=== PATIENT | male | born 2000 | race Caucasian/White ===

== ENCOUNTER 2021-01-01 10:27 | Emergency (ER) | payer BC, SELFPAY ==
[2021-01-01 10:50] VITALS: BP 114/72; PULSE 67; RESP 17; TEMP 36.9; O2SAT 100; BMI 20.9
[2021-01-01] MEDS: dexamethasone 4 mg Tablet 10 MG PO (11:26)
[2021-01-01] MEDS: ondansetron 4 MG Tablet PO (11:27)
--- NOTE | 2021-01-01 11:31 | W.ED.GENADLT ---
HPI - General Adult General: Chief complaint: General Medical Stated complaint: COVID SYMPTOMS Time Seen by Provider: 01/01/21 11:03 History of Present Illness: HPI narrative: Covid-like symptoms. Patient also hit his head on Saturday. Striking on countered had no loss of consciousness no nausea or vomiting. Patient complains of body aches last week or so not any specific day that started his head little bit of sore throat congestion nausea. Cough possibly fever has had positive Covid exposure Onset (ago): day(s) Severity: mild Quality: aching Associated symptoms: Reports cough, fevers/chills, headache(s) (This was previous to hitting his head), nausea and other (Diarrhea); Deny chest pain, dyspnea or rash Review of Systems Const: Reports: chills and body aches; Denies: fever(s) Eyes: Denies: change in vision or blurry vision ENMT: Denies: throat pain or nasal congestion Card: Denies: chest pain or dyspnea on exertion Resp: Denies: dyspnea, productive cough or non-productive cough GI: Reports: nausea and diarrhea : Denies: difficulty urinating Musc: Denies: extremity pain Skin/Breast: Denies: rash Neuro: Reports: headache(s) (This was previous to hitting his head) Psych: Denies: anxiety or depression Lito/Lymph: Denies: easy bruising Physical Exam Const: COMMON NORMALS: no acute distress, average body habitus, patient oriented x3 and alert HENMT: COMMON NORMALS: normocephalic HEAD & SCALP: normal to inspection and normocephalic FACE & SINUS: normal facial exam Eye: COMMON NORMALS: Equal, round and reactive pupils present and conjunctivae normal GENERAL EYE: appearance normal, both eyes and all related structures CONJUNCTIVA: Yes conjunctivae normal PUPIL: Yes Equal, round and reactive pupils present Neck/C-Spine: COMMON NORMALS: no JVD Chest: COMMONS NORMALS: normal inspection of the chest Resp: COMMON NORMALS: normal respiratory effort and clear to auscultation bilaterally AUSCULTATION: clear to auscultation bilaterally Cardio: COMMON NORMALS: no JVD, regular rate and regular rhythm RATE: regular rate RHYTHM: regular rhythm GI: COMMON NORMALS: Normal to inspection, nondistended, normoactive bowel sounds present Extremity: COMMON NORMALS: normal to inspection and full ROM Neuro: COMMON NORMALS: patient oriented x3, CN's II-XII intact bilaterally, moves all extremities, no focal motor deficits and no sensory deficits noted SENSORIUM/ORIENTATION: Yes alert Course Vital Signs: Vital signs: Vital Signs Temperature 98.4 F 01/01/21 10:50 Pulse Rate 67 01/01/21 10:50 Respiratory Rate 17 01/01/21 10:50 Blood Pressure 114/72 01/01/21 10:50 Pulse Oximetry 100 01/01/21 10:50 MDM - General Adult MDM Narrative: Medical decision making narrative: Patient had emesis right after ministration of Zofran orally. Change to IM shot. Patient put on 24-hour clear liquid diet. Follow-up here if worsening or follow-up primary care provider. Discharge Plan Discharge Patient Disposition: Home Clinical Impression: Close exposure to 2019-nCoV Condition: Stable Prescriptions: New Zofran 4 mg tablet 4 mg PO Q8H 3 Days Qty: 9 RF: 0 dexamethasone 6 mg tablet 6 mg PO DAILY Qty: 7 RF: 0 No Action Vitamin C 250 mg Tablet 250 mg PO DAILY RF: 0 Men's One Daily 400-20-300 mcg Tablet 1 tab PO DAILY RF: 0 Discharge Orders: Discharge ED (Routine); Ordered 01/01/21 Ordered By: Ceasar Sherwood Referrals: Jaime Corbin MD [Family Provider] - Discharge Diet: Advance as tolerated Discharge Activity: Increase activity as tolerated Patient Instructions: Viral Syndrome (ED) Activity Restrictions/Additional Instructions: Follow-up with medical provider as directed. Take medications as prescribed. Return to the ER or your medical provider if condition worsens. Please read and understand discharge instructions. If any questions ask please. Self quarantine. Call back in 48 to 72 hours to get Covid test results. 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
[2021-01-01] MEDS: ondansetron 2 mg/ML SDV 2 mL 4 MG IM (11:46)
[2021-01-01 12:04] VITALS: BP 126/69; PULSE 74; RESP 18; O2SAT 98
[2021-01-02 14:00] LABS: Coronavirus Test Green County Detected
== END 2021-01-01 12:04 | disposition home or self-care (01) ==
PROVIDERS: Emergency Provider Nurse Practitioner Family; Family Provider Urology
DX: Z20.822 Contact with and (suspected) exposure to COVID-19 (principal)
CPT/HCPCS: 87635; 96372; 99283; J2405; J8540; Q0162

== ENCOUNTER 2025-03-16 11:46 | Emergency (ER) | payer OTHER, SELFPAY ==
[2025-03-16 11:52] VITALS: BP 131/61; PULSE 68; TEMP 36.9; O2SAT 99; BMI 21.4
--- OUTSIDE RECORDS SUMMARY | 2025-03-16 11:55 | XMS_ITS | Clinical Summary ---
[facility] Organization 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
--- OUTSIDE RECORDS SUMMARY | 2025-03-16 11:55 | XMS_ITS | Encounter Summary ---
Author Organization [facility] Address [address] [place] [address] Care Team Providers Care Tongue Lining Stitcher Name Role Phone Unavailable Primary Care Provider Unavailabl e Encounter Details Date Type Department Care Team (Latest Contact Info) Description 12/14/2004 Outpatient Historical [facility], Nose and Throat 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
[2025-03-16 12:15] LABS: Add Urine Microscopic? NO
[2025-03-16 12:19] LABS: Glucose Urine UA Negative (Normal); Nitrate Urine Negative (Negative); Specific Gravity, Urine 1.009 (1.005-1.030)
[2025-03-16 12:36] LABS: Charge for UA Resulting for Rev
[2025-03-16 12:37] LABS: Hematocrit 42.2 % (37-53); Hemoglobin 14.10 g/dL (11.27-16.99); Mean Corpuscular HGB Conc 33.4 g/dL (30-55); Mean Corpuscular Hemoglobin 30.5 pg (27-33); Mean Corpuscular Volume 91.1 fl (82-101); Nucleated Red Blood Cells % 0 %; Platelet Count 220 10^3/cmm (157-399); Red Blood Count 4.63 10^6/uL (3.85-5.65); White Blood Count 4.86 10^3/uL (3.29-11.43)
[2025-03-16 12:58] LABS: Alanine Aminotransferase 20 U/L (0-41); Albumin Level 4.7 g/dL (3.5-5.2); Alkaline Phosphatase 88 U/L (40-130); Anion Gap 18.5 (5-19); Aspartate Amino Transferase 21 U/L (0-40); Blood Urea Nitrogen 11 mg/dL (6-20); Calcium 9.6 mg/dL (8.5-10.5); Carbon Dioxide 24 mmol/L (22-29); Chloride 102 mmol/L (98-107); Creatinine Clr Calc Pharmacy 121.1994; Globulin 2.7 g/dL (1.3-4.6); Glucose 106 mg/dL (65-115); Lipase 20 U/L (13-60); Osmolality Calculated 290 mOsm/kg (285-295); Potassium 4.5 mmol/L (3.5-5.1); Sodium 140 mmol/L (136-145); Total Protein 7.4 g/dL (6.6-8.7)
--- NOTE | 2025-03-16 13:08 | W.ED.ABDPA2 ---
HPI - Abdominal Pain General: Chief Complaint: Abdominal Pain Stated Complaint: abd pain, nausea Time Seen by Provider: 03/16/25 13:08 Source: patient Mode of arrival: ambulatory Limitations: no limitations History of Present Illness: Patient is a 24-year-old male who presents to ED today with complaint of right upper quadrant abdominal pain that has been present over the past 3 days. He feels like pain has been intermittent. He cannot identify any worsening or alleviating factors to his discomfort. He is felt nauseous and has had a decreased appetite. He has not had any vomiting. No changes in bowel movements. He was seen at our walk-in clinic yesterday and he was thought to have an abdominal muscle sprain/strain. He was subsequently seen at [facility] this morning and had an outpatient ultrasound of his gallbladder ordered for tomorrow. He does state he had a brother that had to have his gallbladder removed at a young age (20). He denies any hematemesis. No history of acid reflux or GERD. MD elicited complaint: abdominal pain Pertinent past history: none Onset (ago): day(s) Pain Consistency: intermittent Location: RUQ Severity: moderate Radiation: none Migration to: no migration Exacerbating factors: nothing Relieving factors: nothing Associated Symptoms: Reports nausea; Denies change in bowel habits, chills, dysuria, fever(s), heartburn, hematochezia, hematuria, melena and vomiting Related Data Home Medications ?Medication ?Instructions ?Recorded ?Confirmed ascorbic acid (vitamin C) 250 mg 250 mg PO DAILY 01/01/21 03/15/25 tablet (Vitamin C) epsrnxaz-fobvuxjd-flvtu acid 400 1 tab PO DAILY 01/01/21 03/15/25 mcg-vit K 20 mcg-lycop 300 mcg tablet (Men's One Daily) Previous Rx's ?Medication ?Instructions ?Recorded dexamethasone 6 mg tablet 6 mg PO DAILY #7 tabs 01/01/21 ibuprofen 600 mg tablet 600 mg PO TID PRN pain #30 tabs 03/15/25 methocarbamol 750 mg tablet 750 mg PO Q8H PRN pain #30 tabs 03/15/25 pantoprazole 40 mg tablet,delayed See Rx Instructions .Route 03/16/25 release (Protonix) .COMPLEX 4 weeks #35 tabs sucralfate 1 gram tablet (Carafate) 1 g PO TID 2 weeks #42 tabs 03/16/25 Allergies Allergy/AdvReac Type Severity Reaction Status Date / Time Sulfa (Sulfonamide Allergy ALGY-Anaphy Verified 03/16/25 11:56 Antibiotics) laxis Review of Systems Const: Denies: fever(s), chills, body aches, fatigue or malaise Card: Denies: chest pain Resp: Denies: dyspnea GI: Reports: abdominal pain and nausea; Denies: vomiting, heartburn, change in bowel habits, hematochezia or melena : Denies: flank pain, dysuria or hematuria Musc: Denies: neck pain, back pain, extremity pain or joint swelling Skin/Breast: Denies: rash Neuro: Denies: headache(s), numbness in extremities, weakness in extremities or sensory changes PFSH ED PFSH: Social History Smoking and tobacco/nicotine status: never used tobacco/nicotine Physical Exam Const: COMMON NORMALS: no acute distress, average body habitus, no limitations, healthy appearing, alert and well nourished Eye: COMMON NORMALS: no scleral icterus Resp: COMMON NORMALS: normal respiratory effort and clear to auscultation bilaterally AUSCULTATION: clear to auscultation bilaterally Cardio: COMMON NORMALS: regular rate and regular rhythm RATE: regular rate RHYTHM: regular rhythm GI: COMMON NORMALS: Normal to inspection, nondistended, normoactive bowel sounds present, Soft to palpation, No hepatosplenomegaly present and no masses INSPECTION: Yes normal to inspection AUSCULTATION: Yes normoactive bowel sounds PALPATION: Yes Soft to palpation, Yes Tenderness to palpation present (GI) Details: RUQ, No Guarding due to palpation present (GI), No Rigid due to palpation and Yes No hepatosplenomegaly present : COMMON NORMALS: Yes no CVA tenderness BLADDER/KIDNEY EXAM: Yes no CVA tenderness Back/Pelvis: COMMON NORMALS: no CVA tenderness Neuro: SENSORIUM/ORIENTATION: Yes alert Course Vital Signs: Vital signs: Vital Signs Temperature 98.4 F 03/16/25 11:52 Pulse Rate 56 L 03/16/25 13:54 Respiratory Rate 16 03/16/25 13:54 Blood Pressure 118/78 03/16/25 13:54 Pulse Oximetry 97 03/16/25 13:54 Oxygen Delivery Me thod Room Air 03/16/25 13:54 MDM - Abdominal Pain Medical Decision Making Patient here for upper abdominal/RUQ abdominal pain over the past few days. He arrives in no acute distress. Vital signs are stable. Blood work showing a normal white count. His chemistry is completely unremarkable. UA is clear. US gallbladder obtained and unremarkable. Abdominal exam is nonsurgical and I do not feel we need to undergo emergent CT imaging at this time. We did trial him with a GI cocktail and he does feel like this helped symptoms a bit . Will trial him on a PPI/Carafate over the next several weeks. He states he will follow-up with PCP Dr. Huang. Return ED precautions discussed. Differential Diagnosis Likely abdominal pain, acute appendicitis, constipation and pancreatitis Medical Records I reviewed the patient's medical records. Lab Data I reviewed the patient's lab results. 03/16/25 12:30 03/16/25 12:30 Labs/Radiology: Radiology Impressions Gallbladder Ultrasound 03/16/25 13:13 IMPRESSION: Normal right upper quadrant ultrasound. Laboratory Results WBC 4.86 10^3/uL (3.29-11.43) 03/16/25 12:30 RBC 4.63 10^6/uL (3.85-5.65) 03/16/25 12:30 Hgb 14.10 g/dL (11.27-16.99) 03/16/25 12:30 Hct 42.2 % (37-53) 03/16/25 12:30 MCV 91.1 fl (82-101) 03/16/25 12:30 MCH 30.5 pg (27-33) 03/16/25 12:30 MCHC 33.4 g/dL (30-55) 03/16/25 12:30 RDW 11.9 % (12.1-15.1) L 03/16/25 12:30 Plt Count 220 10^3/cmm (157-399) 03/16/25 12:30 MPV 11.2 fL (7.4-10.4) H 03/16/25 12:30 Neut % (Auto) 68.3 % 03/16/25 12:30 Lymph % (Auto) 21.4 % 03/16/25 12:30 [place] % (Auto) 9.1 % 03/16/25 12:30 Eos % (Auto) 0.8 % 03/16/25 12:30 Baso % (Auto) 0.2 % 03/16/25 12:30 Neut # (Auto) 3.32 10^3/uL (1.8-7.7) 03/16/25 12:30 Lymph # (Auto) 1.0 10^3/uL (0.8-4.8) 03/16/25 12:30 [place] # (Auto) 0.4 10^3/uL (0.2-0.9) 03/16/25 12:30 Eos # (Auto) 0.0 10^3/uL (0.0-0.8) 03/16/25 12:30 Baso # (Auto) 0.0 10^3/uL (0.0-0.1) 03/16/25 12:30 Nucleated RBC % (auto) 0 % 03/16/25 12: Nucleated RBCs # 0.0 /100WBC 03/16/25 12:30 Sodium 140 mmol/L (136-145) 03/16/25 12:30 Potassium 4.5 mmol/L (3.5-5.1) 03/16/25 12:30 Chloride 102 mmol/L (98-107) 03/16/25 12:30 Carbon Dioxide 24 mmol/L (22-29) 03/16/25 12:30 Anion Gap 18.5 (5-19) 03/16/25 12:30 BUN 11 mg/dL (6-20) 03/16/25 12:30 Creatinine 1.0 mg/dL (0.7-1.2) 03/16/25 12:30 GFR Calculation 91.8 mL/min (90-130) 03/16/25 12:30 Glucose 106 mg/dL (65-115) 03/16/25 12:30 Calculated Osmolality 290 mOsm/kg (285-295) 03/16/25 12:30 Calcium 9.6 mg/dL (8.5-10.5) 03/16/25 12:30 Total Bilirubin 0.5 mg/dL (0.15-1.2) 03/16/25 12:30 AST 21 U/L (0-40) 03/16/25 12:30 ALT 20 U/L (0-41) 03/16/25 12:30 Alkaline Phosphatase 88 U/L (40-130) 03/16/25 12:30 Total Protein 7.4 g/dL (6.6-8.7) 03/16/25 12:30 Albumin 4.7 g/dL (3.5-5.2) 03/16/25 12:30 Globulin 2.7 g/dL (1.3-4.6) 03/16/25 12:30 Lipase 20 U/L (13-60) 03/16/25 12:30 Urine Color Yellow (Yellow) 03/16/25 12:03 Urine Appearance Clear (CLEAR) 03/16/25 12:03 Urine pH 7.5 (5-7) 03/16/25 12:03 Ur Specific [place] 1.009 (1.005-1.030) 03/16/25 12:03 Urine Protein Negative (Negative) 03/16/25 12:03 Urine Glucose (UA) Negative (Normal) 03/16/25 12:03 Urine Ketones Negative (Negative) 03/16/25 12:03 Urine Blood Negative (Negative) 03/16/25 12:03 Urine Nitrate Negative (Negative) 03/16/25 12:03 Urine Bilirubin Negative (Negative) 03/16/25 12:03 Urine Urobilinogen 0.2 mg/dL (Negative) 03/16/25 12:03 Ur Leukocyte Esterase Negative (Negative) 03/16/25 12:03 Amorphous Sediment Not Reportable 03/16/25 12:03 All radiology interpretation(s) finalized by discharge Discharge Plan Discharge Patient Disposition: Home Clinical Impression: Acute upper abdominal pain Condition: Stable Prescriptions: New pantoprazole [Protonix] 40 mg tablet,delayed release (DR/EC) See Rx Instructions .ROUTE .COMPLEX 28 Days Qty: 35 0RF Rx Instructions: 40 mg orally BID x 7 days then once daily thereafter sucralfate [Carafate] 1 gram tablet 1 g PO TID 14 Days Qty: 42 0RF No Action methocarbamol 750 mg tablet 750 mg PO Q8H PRN (Reason: pain) Qty: 30 0RF ibuprofen 600 mg tablet 600 mg PO TID PRN (Reason: pain) Qty: 30 0RF Vitamin C 250 mg Tablet 250 mg PO DAILY Men's One Daily 400-20-300 mcg Tablet 1 tab PO DAILY dexamethasone 6 mg tablet 6 mg PO DAILY Qty: 7 0RF Discharge Orders: Discharge ED (Routine); Ordered 03/16/25 Ordered By: Alina Onofre Patient Instructions: Abdominal Pain (ED), Patient Portal & Viki Instructions Activity Restrictions/Additional Instructions: As we discussed, your blood work here was completely unremarkable. Gallbladder ultrasound was normal. We will trial you on 2 different medications to help if pain is coming from your esophagus/stomach. We discussed a bland diet keeping away from salty, acidic, spicy foods. Please follow-up with primary care, Dr. Huang in 1 to 2 weeks to see how symptoms are doing. You may return the emergency department at anytime for any worsening or uncontrollable pain, repetitive episodes of vomiting, blood in your vomit, fevers, generally feeling worse or unwell, or any other concerns you may have. Print Language: Colombian Coding Level of Care Code ED Tobacco Drier Operator for Zoie Gutierrez
--- NOTE | 2025-03-16 13:13 | US_ITS ---
WS: [id number] RIGHT UPPER QUADRANT ULTRASOUND HISTORY: RUQ abdominal pain COMPARISON: None available. Liver: 14.2 cm in length. Normal size liver and echogenicity. No bile duct dilatation or mass. Portal Vein: Normal hepatopetal flow with monophasic waveform. Gallbladder: Normally distended gallbladder with no stones or wall thickening. CBD: 0.2 cm Pancreas: Normal size and echogenicity. Right kidney: 10.7 cm in length. Normal size and echogenicity. No hydronephrosis or mass. Aorta and IVC: Unremarkable abdominal aorta and IVC. No ascites. US/US gall bladder [id number] IMPRESSION: Normal right upper quadrant ultrasound.
[2025-03-16 13:32] VITALS: RESP 18; O2SAT 98
[2025-03-16] MEDS: morphine 4 mg/mL SDV 1 mL IM (13:32)
[2025-03-16] MEDS: ondansetron 2 mg/ML SDV 2 mL 4 MG IM (13:32)
[2025-03-16 13:54] VITALS: BP 118/78; PULSE 56; RESP 16; O2SAT 97
[2025-03-16] MEDS: lidocaine 2% viscous 15 ML, aluminum-mag hydrox-simethicon 30 ML, sucralfate oral liq 1 GM PO (14:19)
[2025-03-16 15:14] VITALS: BP 110/74; PULSE 58; RESP 16; O2SAT 95
== END 2025-03-16 15:13 | disposition home or self-care (01) ==
PROVIDERS: Family Medicine; Emergency Provider Physician Assistant
DX: R10.10 Upper abdominal pain, unspecified (principal)
CPT/HCPCS: 36415; 76705; 80053; 81003; 83690; 85025; 96372; 99284; J2270; J2405; J9999

== ENCOUNTER 2025-05-27 11:46 | Outpatient (CLI) | payer OTHER, SELFPAY ==
--- NOTE | 2025-05-27 11:51 | CTR_ITS ---
PROCEDURE INFORMATION: Exam: CT Abdomen And Pelvis Without And With Contrast Exam date and time: 05/27/2025 12:56 PM Age: 24 years old Clinical indication: Abdominal pain; Localized; Left upper quadrant (luq); Left upper quadrant pain x 1.5 months; Additional info: Generalized abdominal pain TECHNIQUE: Imaging protocol: Computed tomography of the abdomen and pelvis without and with contrast. Radiation optimization: All CT scans at this facility use at least one of these dose optimization techniques: automated exposure control; mA and/or kV adjustment per patient size (includes targeted exams where dose is matched to clinical indication); or iterative reconstruction. Contrast material: OMNI 350; Contrast volume: 100 ml; Contrast route: INTRAVENOUS (IV); COMPARISON: US gall bladder [id number] 03/16/2025 1:39 PM RADIATION DOSE METRICS: Total DLP (mGy-cm): 494.92 FINDINGS: Lungs: Well aerated lung bases. Well aerated lung bases. Liver: Normal. No mass. Gallbladder and biliary ducts: Normal. No calcified stones. No ductal dilation. Pancreas: Normal. No ductal dilation. Spleen: Normal. No splenomegaly. Adrenal glands: Normal. No mass. Kidneys and ureters: No nephroureterolithiasis or hydroureteronephrosis. Stomach and bowel: Moderate stool in the transverse colon and ascending colon. The terminal ileum contains fecalized material and there is moderate wall thickening. No small bowel obstruction. No visible focal abnormality of the stomach. Appendix: The appendix is not definitively identified. No inflammatory changes or fluid along the cecum to suggest acute appendicitis. Intraperitoneal space: Unremarkable. No free air. No significant fluid collection. Vasculature: Unremarkable. No abdominal aortic aneurysm. Lymph nodes: Unremarkable. No enlarged lymph nodes. Urinary bladder: Distended bladder without wall thickening. Reproductive: Unremarkable as visualized. Bones/joints: Unremarkable. No acute fracture. Soft tissues: Unremarkable. CT/CT abdomen pelvis wo/w [id number] IMPRESSION: 1. The terminal ileum contains some fecalized material and there is moderate wall thickening. Can correlate with any clinical symptoms of terminal ileitis (which could be infectious or inflammatory in nature), or chronic slow transit. 2. No other acute appearing abnormality is evident.
[2025-05-27] MEDS: iohexol 350 mg/mL 500 mL Btl (per mL) PO (13:03)
[2025-05-27] MEDS: iohexol 350 mg/mL 500 mL Btl (per mL) IV (13:04)
== END 2025-05-27 11:47 | disposition home or self-care (01) ==
LOC: RAD 11:47
PROVIDERS: PCP Electrodiagnostic Medicine; Visit Provider Electrodiagnostic Medicine
DX: R10.84 Generalized abdominal pain (principal); K56.41 Fecal impaction; K63.89 Other specified diseases of intestine; R19.09 Other intra-abdominal and pelvic swelling, mass and lump
CPT/HCPCS: 74178